=== PATIENT | female | born 1945 | race African-American/Black ===

== ENCOUNTER 2019-07-28 18:34 | Emergency (ER) | payer MEDICARE ==
[~2019-07-28] VITALS: Ht 170.2 cm; Wt 74.1 kg
[2019-07-28] MEDS ORDERED: METF-839 PO (18:47)
[2019-07-28] MEDS ORDERED: NAPR-885 PO (18:47)
[2019-07-28] MEDS ORDERED: AMLO5TAB6 PO (18:47)
[2019-07-28] MEDS ORDERED: GLIM4TAB3 PO (18:47)
[2019-07-28] MEDS ORDERED: GLIP5TAB PO (18:47)
--- NOTE | 2019-07-28 19:42 | REP ---
REASON: Near syncopal episode. The technique utilized in obtaining the radiograph has magnified the cardiac silhouette and accentuated the interstitial markings. FINDINGS: The superior mediastinal structures are midline. The cardiac silhouette is unremarkable in size, shape, and position. The diaphragmatic surfaces of the lungs are regular, and the costophrenic angles are clear. The pulmonary awan are clear. The imaged osseous structures are intact. IMPRESSION: There is no acute cardiopulmonary disease. Electronically Signed by Van Mathis DO 07/28/2019 07:46 P
--- NOTE | 2019-07-28 19:52 | REPVR ---
PROCEDURE INFORMATION: Exam: CT Head Without Contrast Exam date and time: 07/28/2019 7:07 PM Clinical history: 73 years old, female; Syncope and collapse TECHNIQUE: Imaging protocol: Computed tomography of the head without contrast. Radiation optimization: All CT scans at this facility use at least one of these dose optimization techniques: automated exposure control; mA and/or kV adjustment per patient size (includes targeted exams where dose is matched to clinical indication); or iterative reconstruction. COMPARISON: No relevant prior studies available. FINDINGS: Brain: Global cerebral atrophy is consistent with patient's age. Decreased attenuation within the white matter tracts of both cerebral hemispheres is nonspecific but typically seen with small vessel disease/chronic white matter ischemic changes of aging. No intracranial hemorrhage or mass effect. No dominant vascular territory acute stroke identified. Ventricles: Unremarkable. No ventriculomegaly. Bones/joints: Unremarkable. No acute fracture. Sinuses: Visualized sinuses are unremarkable. No fluid levels. Mastoid air cells: Visualized mastoid air cells are well aerated. Soft tissues: Unremarkable. IMPRESSION: No acute abnormality. Electronically signed by: Jose Abdul On 07/28/2019 19:52:44 PM
--- NOTE | 2019-07-28 19:58 | REPVR ---
PROCEDURE INFORMATION: Exam: CT Cervical Spine Without Contrast Exam date and time: 07/28/2019 7:07 PM Clinical history: 73 years old, female; Other: Syncope TECHNIQUE: Imaging protocol: Computed tomography images of the cervical spine without contrast. Radiation optimization: All CT scans at this facility use at least one of these dose optimization techniques: automated exposure control; mA and/or kV adjustment per patient size (includes targeted exams where dose is matched to clinical indication); or iterative reconstruction. COMPARISON: No relevant prior studies available. FINDINGS: Vertebrae: No acute fracture or subluxation. Normal bone density. Partial fusion of the right second costovertebral joint, likely congenital versus posttraumatic or postinflammatory. Discs/Spinal canal/Neural foramina: Degenerative disc disease and facet arthrosis is present throughout the cervical spine. Mild bony spinal stenosis is present at C5-C6. Neural foraminal bony encroachment is present on the left at C4-C5, bilaterally at C5-C6 and on the left at C6-C7. Retropharyngeal space: The retropharyngeal soft tissues are unremarkable. Soft tissues: Unremarkable. Lungs: Lung apices are clear. IMPRESSION: 1. Degenerative spondylosis of the cervical spine. 2. No acute fracture or subluxation. Electronically signed by: Jose Abdul On 07/28/2019 19:58:34 PM
[2019-07-28] MEDS ORDERED: NS 1,000 ML IV SCH (20:00)
[2019-07-28 20:22] LABS: BASO % 0.6 % (0.0-1.0); EOS % 0.6 % (0.0-3.0); HEMATOCRIT 41.4 % (36.0-47.0); HEMOGLOBIN 13.4 g/dl (12.0-15.5); LYMPH % 43.6 % (24.0-44.0); MEAN CORPUSCULAR HEMOGLOBIN 30.4 pg (27.0-33.0); MEAN CORPUSCULAR HGB CONC 32.4 g/dl (32.0-36.5); MEAN CORPUSCULAR VOLUME 93.9 fl (80.0-96.0); MONO # 0.7 10^3/uL (0.0-0.8); MONO % 9.5 % (0.0-5.0); NEUTROPHILS # 3.1 10^3/uL (1.5-8.5); NEUTROPHILS % 45.4 % (36.0-66.0); PLATELET COUNT, AUTOMATED 277 10^3/uL (150-450); RED BLOOD COUNT 4.41 10^6/uL (4.00-5.40); WHITE BLOOD COUNT 6.8 10^3/uL (4.0-10.0)
[2019-07-28 20:37] LABS: INR 1.05; PARTIAL THROMBOPLASTIN TIME 25.1 SECONDS (25.0-38.4); PROTHROMBIN TIME 13.4 SECONDS (11.8-14.0)
[2019-07-28 20:47] LABS: AMPHETAMINES LEVEL URINE NEGATIVE (NEGATIVE); BARBITURATES URINE NEGATIVE (NEGATIVE); BENZODIAZEPINES URINE NEGATIVE (NEGATIVE); CANNABINOIDS URINE NEGATIVE (NEGATIVE); COCAINE METABOLITE URINE NEGATIVE (NEGATIVE); METHADONE URINE NEGATIVE (NEGATIVE); OPIATES URINE NEGATIVE (NEGATIVE); PHENCYCLIDINE URINE NEGATIVE (NEGATIVE)
[2019-07-28 21:06] LABS: ALBUMIN 3.1 GM/DL (3.2-5.2); ALT/SGPT 17 U/L (12-78); BILIRUBIN,DIRECT < 0.1 MG/DL (0.0-0.2); BILIRUBIN,TOTAL 0.2 MG/DL (0.2-1.0); BLOOD UREA NITROGEN 13 MG/DL (7-18); CALCIUM LEVEL 8.9 MG/DL (8.8-10.2); CARBON DIOXIDE LEVEL 28 MEQ/L (21-32); CHLORIDE LEVEL 108 MEQ/L (98-107); CK-MB VALUE MASS 1.3 NG/ML (<3.6); CPK CREATINE PHOSPHOKINASE 135 U/L (26-192); CREATININE FOR GFR 0.97 MG/DL (0.55-1.30); ETHYL ALCOHOL (ETHANOL) < 0.003 % (0.000-0.010); FREE T4 0.88 NG/DL (0.76-1.46); GLOMERULAR FILTRATION RATE > 60.0 (>39); GLUCOSE, FASTING 134 MG/DL (70-100); MAGNESIUM LEVEL 1.8 MG/DL (1.8-2.4); MB/CK RELATIVE INDEX 0.96 (< OR =4); POTASSIUM SERUM 4.2 MEQ/L (3.5-5.1); SODIUM LEVEL 141 MEQ/L (136-145); TOTAL PROTEIN 7.2 GM/DL (6.4-8.2); TROPONIN I < 0.02 NG/ML (< 0.10)
[2019-07-28] MEDS ORDERED: LABETALOL HCL 100 MG/20 ML VIAL IV STA (21:34)
[2019-07-28] MEDS ORDERED: NIFEdipine 10 MG CAP PO ONE (22:15)
[2019-07-28 22:23] VITALS: BP 168/86
--- NOTE | 2019-07-29 08:49 | REP ---
RIGHT SHOULDER SERIES: Three views. HISTORY: Injury in a fall. FINDINGS: The right glenohumeral and acromioclavicular joint are normally aligned. 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 There is some narrowing of the subacromial space on the AP view suggesting degeneration of the rotator cuff. No fracture or subluxation is seen. IMPRESSION: Degenerative changes. No acute traumatic abnormality. Electronically Signed by Guilherme Conroy MD 07/29/2019 01:42 P
--- NOTE | 2019-07-29 15:07 | ECGEPIP ---
[facility] - ED Test Date: 2019-07-28 Pat Name: CONCETTA HALL Department: Room: - Gender: Female [employer] Operator: KC : 1945 Requested By: DARIAN Newell Order Number: [id number] Reading MD: Coni Wilcox Measurements Intervals [place] Rate: 66 P: 62 WV: 160 QRS: 17 QRSD: 92 T: 53 QT: 408 QTc: 431 Interpretive Statements SINUS RHYTHM NSTTW abnormalities NO PRIOR Electronically Signed on 07-29-2019 15:07:11 EDT by Coni Wilcox
== END 2019-07-28 23:02 | disposition home or self-care (01) ==
LOC: M ED 18:34
DX: R55 Syncope and collapse (principal); E11.9 Type 2 diabetes mellitus without complications; I10 Essential (primary) hypertension; Z79.899 Other long term (current) drug therapy
CPT/HCPCS: 36415; 70450; 71045; 72125; 73030; 80048; 80076; 80307; 82550; 82553; 83735; 84439; 84443; 84484; 85025; 85610; 85730; 93005; 93041; 94760; 99285; G0480

== ENCOUNTER → 2020-07-11 | Outpatient (CLI) | payer MEDICARE ==
[~2020-07-11] MED LIST: AMLO1TAB24 PO; GLIM4TAB5 PO; GLIP5TAB PO; METF-839 PO; NAPR-885 PO
[2020-07-11 13:37] LABS: APPEARANCE, URINE HAZY (CLEAR); BACTERIA, URINE AUTO NEGATIVE (NEGATIVE); BILIRUBIN, URINE AUTO NEGATIVE (NEGATIVE); BLOOD, URINE BLOOD NEGATIVE (NEGATIVE); COLOR, URINE STRAW (YELLOW); GLUCOSE, URINE (UA) AUTO NEGATIVE (NEGATIVE); KETONE, URINE AUTO NEGATIVE (NEGATIVE); LEUKOCYTE ESTERASE, URINE AUTO 2+ (NEGATIVE); MUCUS, URINE SMALL (NEGATIVE); NITRITE, URINE AUTO NEGATIVE (NEGATIVE); PROTEIN, URINE AUTO NEGATIVE (NEGATIVE); RBC, URINE AUTO 6 /HPF (0-3); SPECIFIC GRAVITY URINE AUTO 1.006 (1.002-1.035); SQUAMOUS EPITHELIAL CELL UR AU 3 /HPF (0-6); UROBILINOGEN, URINE AUTO 0.2 mg/dL (0.0-2.0); WBC, URINE AUTO 1 /HPF (0-3)
[2020-07-11 13:44] LABS: BASO % 0.6 % (0.0-1.0); EOS % 0.5 % (0.0-3.0); HEMATOCRIT 39.5 % (36.0-47.0); HEMOGLOBIN 12.5 g/dl (12.0-15.5); LYMPH # 2.6 10^3/uL (1.5-5.0); MEAN CORPUSCULAR HGB CONC 31.6 g/dl (32.0-36.5); MEAN CORPUSCULAR VOLUME 94.7 fl (80.0-96.0); MONO # 0.7 10^3/uL (0.0-0.8); MONO % 10.6 % (0.0-5.0); NEUTROPHILS # 2.9 10^3/uL (1.5-8.5); PLATELET COUNT, AUTOMATED 252 10^3/uL (150-450); RED BLOOD COUNT 4.17 10^6/uL (4.00-5.40); WHITE BLOOD COUNT 6.2 10^3/uL (4.0-10.0)
[2020-07-11 14:02] LABS: HEMOGLOBIN A1c 6.4 %
[2020-07-11 14:11] LABS: ALT/SGPT 15 U/L (12-78); BILIRUBIN,TOTAL 0.2 MG/DL (0.2-1.0); BLOOD UREA NITROGEN 21 MG/DL (7-18); CALCIUM LEVEL 8.8 MG/DL (8.8-10.2); CARBON DIOXIDE LEVEL 27 MEQ/L (21-32); CHLORIDE LEVEL 108 MEQ/L (98-107); CHOLESTEROL LEVEL 176 MG/DL (<200); CHOLESTEROL RISK RATIO 3.666 (<5); CREATININE FOR GFR 1.12 MG/DL (0.55-1.30); CREATININE, URINE 63.1 MG/DL; GLOMERULAR FILTRATION RATE > 60.0 (>39); GLUCOSE, FASTING 151 MG/DL (70-100); HDL CHOLESTEROL 48 MG/DL (>40); LDL CHOLESTEROL 94 MG/DL (<100); MALB URINE SIEMENS 17.4 MG/L; MAU/CREAT RATIO 27.5 MCG/MG (0.0-30.0); NON-HDL-C 128 MG/DL; POTASSIUM SERUM 3.9 MEQ/L (3.5-5.1); SODIUM LEVEL 141 MEQ/L (136-145); TOTAL PROTEIN 6.7 GM/DL (6.4-8.2); TRIGLYCERIDES LEVEL 169 MG/DL (<150); URIC ACID 5.4 MG/DL (2.6-6.0); VITAMIN B12 LEVEL 908 PG/ML
[2020-07-11 14:12] LABS: FOLATE 14.1 NG/ML
== END ==
LOC: M LAB 12:17
PROVIDERS: ATTEND Family Medicine
DX: E03.9 Hypothyroidism, unspecified (principal); E11.69 Type 2 diabetes mellitus with other specified complication; Z85.3 Personal history of malignant neoplasm of breast; Z12.11 Encounter for screening for malignant neoplasm of colon

== ENCOUNTER → 2020-07-13 | Outpatient (CLI) | payer MEDICARE ==
--- NOTE | 2020-07-19 13:53 | DEXA ---
AP SPINE L1 - L4 1.135 -0.5 1.2 LT FEMUR TOTAL 0.815 -1.5 0.1 LT NECK 0.707 -2.4 -0.5 RT FEMUR TOTAL 0.819 -1.5 0.1 RT NECK 0.729 -2.2 -0.4 TOTAL BODY TOTAL OTHER COMMENTS: Normal bone densitometry of the spine. There is low bone density of the hips. The density of the spine has increased 6.1% since the initial exam on 07/20/2004. The increased 2.6% since the most recent exam on 06/10/2018. The density of the left hip has increased 4.2% since the initial exam on 07/20/2004. The density of the left hip has decreased 5.0% since the most recent exam on 06/10/2018. The density of the right hip has increased 4.5% since the initial exam on 07/20/2004. The density of the right hip has decreased 0.8% since the most recent exam on 06/10/2018. FOLLOW-UP: Recommendation for the next bone density exam: 2 years. JHOANA
== END ==
LOC: M WHC 12:22
PROVIDERS: ATTEND Family Medicine
DX: E03.9 Hypothyroidism, unspecified (principal); E11.69 Type 2 diabetes mellitus with other specified complication; Z85.3 Personal history of malignant neoplasm of breast; Z78.0 Asymptomatic menopausal state; Z12.11 Encounter for screening for malignant neoplasm of colon; Z79.84 Long term (current) use of oral hypoglycemic drugs

== ENCOUNTER → 2020-12-05 | Outpatient (CLI) | payer MEDICARE ==
--- NOTE | 2020-12-14 14:58 | REPMRS ---
Patient History The patient states she has not had a clinical breast exam in over a year. Patient is postmenopausal and has history of cancer in the left breast at age 61. Malignant mastectomy of the left breast, 2006. 3D TOMOSYNTHESIS WAS PERFORMED. [employer] breast density b. Digital Woman Screen Mammo: December 05, 2020 - Exam #: [id number] CC and MLO view(s) were taken of the right breast. Technologist: Mesha Nice, Technologist FINDINGS: There are scattered fibroglandular densities. There has been no change in the appearance of the mammogram from the prior studies. There is a mild amount of residual fibroglandular tissue. There is no interval development of dominant mass, architectural distortion, or clustered microcalcification suggestive of malignancy. No significant changes when compared with prior studies. Assessment: BI-RADS/ACR category 1 mammogram. Negative Mammogram. Recommendation Routine screening mammogram in 1 year (for women over age 40). This mammogram was interpreted with the aid of an FDA-approved computer-aided dectection system. Electronically Signed By: Otilio Werner MD 12/14/20 [id number]
== END ==
LOC: M WHC 12:15
PROVIDERS: ATTEND Registered Nurse
DX: Z12.31 Encounter for screening mammogram for malignant neoplasm of breast (principal)